=== PATIENT | female | born 1990 | race Caucasian/White ===

== ENCOUNTER 2016-10-24 17:25 | Emergency (ER) | payer SELFPAY ==
[~2016-10-24] VITALS: Ht 170.2 cm; Wt 100.0 kg
[~2016-10-24 17:25] MED LIST: CLEOCIN HC150 MG/CAP PO; DEPO MEDROL40 MG/ML IJ; DOXYCYCLINE 10100 MG PO; DROSPIRENONE; FLAGYL 375375 MG PO; FLEXERIL 1010 MG/TAB PO; LORTAB 7.5/5001 TAB PO; METRONIDAZOLE500 MG PO; NAPROSYN 2250 MG/TAB PO; NO HOME MEDICATIONS; NORCO 325 MG-51 TAB PO; NORCO 325 MG-7.1 TAB PO; PERCOCET 325 MG1 TA2 PO; PHENERGAN 25 TA25 MG PO; PRENATAL1 TA1 PO; PRIL40 PO; SPRINTEC 35 MCG1 TAB PO; ULTRAM 50MG TAB50 MG PO; ZITHROMAX 250M250 MG PO; ZOFRAN 4MG T4 MG/TAB PO; ZOFRAN8 MG PO; birth control
[2016-10-24 18:32] VITALS: BP 125/81; PULSE 91; TEMP 99.6
== END 2016-10-24 19:03 | disposition home or self-care (01) ==
LOC: COL.ER 17:25
DX: R50.9 Fever, unspecified (principal)

== ENCOUNTER 2017-09-11 05:02 | Emergency (ER) | payer SELFPAY ==
[~2017-09-11] VITALS: Ht 170.2 cm; Wt 100.0 kg
[2017-09-11 05:08] VITALS: TEMP 98
[2017-09-11 06:06] LABS: BASO # 0.1 (0.0-0.2); BASO % 0.8 % (0.0-2.0); EOS # 0.4 (0.0-0.7); EOS % 4.2 % (0-4.0); GRAN # 4.4 (1.4-6.5); GRAN % 49.4 % (42.2-75.2); HEMATOCRIT 39.5 % (37.0-47.0); HEMOGLOBIN 12.9 g/dl (12.5-16.0); LYMPH # 3.2 (1.2-3.4); LYMPH % 35.4 % (20.0-51.0); MEAN CELL VOLUME 86 fl (80.0-100.0); MEAN CORPUSCULAR HEMOGLOBIN 28 pg (27.0-31.0); MEAN CORPUSCULAR HGB CONC 33 g/dl (33.0-37.0); MEAN PLATELET VOLUME 10.3 fl (7.4-10.4); MONO # 0.9 (0.1-0.6); MONO % 9.9 % (1.7-9.3); PLATELET COUNT 252 K/mm3 (130-400); RED BLOOD COUNT 4.62 M/mm3 (4.10-5.30)
[2017-09-11 06:13] LABS: PROTHROMBIN TIME 11.5 SECONDS (9.7-12.8)
[2017-09-11 06:16] LABS: PARTIAL THROMBOPLASTIN TIME 29.5 SECONDS (26.0-37.0)
[2017-09-11 07:23] LABS: COLLECTION METHOD CLEAN CATCH
[2017-09-11] MEDS ORDERED: ORTHO-CYCLEN 351 TAB PO (07:23)
[2017-09-11] MEDS ORDERED: ZOFRAN 4MG T4 MG/TAB PO (07:31)
[2017-09-11 07:34] LABS: CHLAMYDIA/TRACH by PCR Female NOT DETECTED; NEISSERIA GON by PCR Female NOT DETECTED
[2017-09-11 07:49] LABS: MUCOUS Present /lpf; PH 5 (5-8); URINE APPEARANCE Clear; URINE BACTERIA Rare /hpf; URINE BILIRUBIN Negative (NEGATIVE); URINE BLOOD 3+ (NEGATIVE); URINE COLOR Yellow; URINE GLUCOSE Negative (NEGATIVE); URINE KETONE Negative (NEGATIVE); URINE LEUKOCYTE ESTERASE Negative (NEGATIVE); URINE PROTEIN(semi-quant) Negative (NEGATIVE); URINE RBC 20-50 /hpf; URINE UROBILINOGEN Negative (NEGATIVE)
[2017-09-11] MEDS ORDERED: MACROBID 1100 MG/CAP PO (07:59)
[2017-09-11 08:20] VITALS: BP 118/74; PULSE 76
== END 2017-09-11 08:20 | disposition home or self-care (01) ==
LOC: COL.ER 05:02
PROVIDERS: Emergency Medicine
DX: N93.9 Abnormal uterine and vaginal bleeding, unspecified (principal); E66.9 Obesity, unspecified; F17.210 Nicotine dependence, cigarettes, uncomplicated

== ENCOUNTER 2018-05-02 22:23 | Emergency (ER) | payer SELFPAY ==
[~2018-05-02] VITALS: Ht 170.2 cm; Wt 100.0 kg
[~2018-05-02 22:23] MED LIST changes: +MACROBID 1100 MG/CAP PO; +ORTHO-CYCLEN 351 TAB PO
[2018-05-02 23:11] LABS: BASO # 0.1 (0.0-0.2); BASO % 0.6 % (0.0-2.0); EOS # 0.5 (0.0-0.7); GRAN # 10.2 (1.4-6.5); GRAN % 64.5 % (42.2-75.2); HEMATOCRIT 37.8 % (37.0-47.0); HEMOGLOBIN 13.3 g/dl (12.5-16.0); LYMPH # 3.8 (1.2-3.4); LYMPH % 23.9 % (20.0-51.0); MEAN CELL VOLUME 88 fl (80.0-100.0); MEAN CORPUSCULAR HEMOGLOBIN 31 pg (27.0-31.0); MEAN CORPUSCULAR HGB CONC 35 g/dl (33.0-37.0); MEAN PLATELET VOLUME 9.7 fl (7.4-10.4); MONO # 1.2 (0.1-0.6); MONO % 7.6 % (1.7-9.3); PLATELET COUNT 277 K/mm3 (130-400); RED BLOOD COUNT 4.28 M/mm3 (4.10-5.30); REDCELL DISTRIBUTION WIDTH-CV 14.7 % (11.5-14.5)
[2018-05-02 23:22] LABS: ALANINE AMINOTRANSFERASE 21 U/L (9-52); ALBUMIN 3.8 gm/dL (3.5-5.0); ALKALINE PHOSPHATASE 86 U/L (50-136); ANION GAP 11 mmol/L (7-16); AST,SGOT 13 U/L (15-37); BILIRUBIN,TOTAL 0.2 mg/dL (0.0-1.0); BLOOD UREA NITROGEN 6 mg/dL (7-17); CALCIUM 9.3 mg/dL (8.4-10.2); CARBON DIOXIDE 20 mmol/L (22-30); CHLORIDE 107 mmol/L (98-107); CREATININE, serum 0.65 mg/dL (0.52-1.25); GLUCOSE 189 mg/dL (74-106); LIPASE 110 U/L (23-300); POTASSIUM 3.8 mmol/L (3.4-5.0); SODIUM 138 mmol/L (137-145)
[2018-05-02 23:41] LABS: HCG,QUANTITATIVE < 2 mIU/mL (0-5)
[2018-05-02 23:43] LABS: COLLECTION METHOD CLEAN CATCH
[2018-05-03 00:08] LABS: AMORPHOUS CRYSTAL Present /uL; MUCOUS Present /lpf; PH 5 (5-8); URINE APPEARANCE Hazy; URINE BACTERIA Moderate /hpf; URINE BILIRUBIN Negative (NEGATIVE); URINE BLOOD 3+ (NEGATIVE); URINE COLOR Yellow; URINE GLUCOSE Negative (NEGATIVE); URINE KETONE Negative (NEGATIVE); URINE LEUKOCYTE ESTERASE 1+ (NEGATIVE); URINE NITRATE Negative (NEGATIVE); URINE PROTEIN(semi-quant) 1+ (NEGATIVE); URINE RBC >50 /hpf; URINE UROBILINOGEN Negative (NEGATIVE)
[2018-05-03] MEDS ORDERED: ZOFRAN ODT4 MG PO (00:16)
[2018-05-03] MEDS ORDERED: OMNICEF 300MG300 MG PO (00:16)
[2018-05-03 00:50] VITALS: BP 148/85
[2018-05-03 01:05] VITALS: PULSE 78; TEMP 97.8
[2018-05-04] MEDS ORDERED: NORCO 325 MG-51 TAB PO (01:17)
== END 2018-05-03 01:05 | disposition home or self-care (01) ==
LOC: COL.ER 22:23
PROVIDERS: Physician Assistant
DX: N12 Tubulo-interstitial nephritis, not specified as acute or chronic (principal); F17.210 Nicotine dependence, cigarettes, uncomplicated
CPT/HCPCS: J0696; J1885; J3010

== ENCOUNTER 2018-05-03 22:38 | Emergency (ER) | payer SELFPAY ==
[~2018-05-03] VITALS: Ht 170.2 cm; Wt 100.0 kg
[~2018-05-03 22:38] MED LIST changes: +OMNICEF 300MG300 MG PO; +ZOFRAN ODT4 MG PO
[2018-05-03 22:45] VITALS: TEMP 98.3
[2018-05-03 23:12] LABS: BASO # 0.1 (0.0-0.2); BASO % 0.8 % (0.0-2.0); EOS # 0.4 (0.0-0.7); EOS % 2.9 % (0-4.0); GRAN # 8.1 (1.4-6.5); GRAN % 55.2 % (42.2-75.2); HEMATOCRIT 40.9 % (37.0-47.0); HEMOGLOBIN 13.7 g/dl (12.5-16.0); LYMPH # 4.7 (1.2-3.4); MEAN CELL VOLUME 87 fl (80.0-100.0); MEAN CORPUSCULAR HEMOGLOBIN 29 pg (27.0-31.0); MEAN CORPUSCULAR HGB CONC 34 g/dl (33.0-37.0); MONO # 1.3 (0.1-0.6); MONO % 8.8 % (1.7-9.3); PLATELET COUNT 344 K/mm3 (130-400); RED BLOOD COUNT 4.72 M/mm3 (4.10-5.30); REDCELL DISTRIBUTION WIDTH-CV 14.5 % (11.5-14.5)
[2018-05-03 23:19] LABS: COLLECTION METHOD CLEAN CATCH; PH 7 (5-8); SQUAMOUS EPITHELIAL 0-2 /hpf; URINE APPEARANCE Clear; URINE BACTERIA Rare /hpf; URINE BILIRUBIN Negative (NEGATIVE); URINE BLOOD 3+ (NEGATIVE); URINE COLOR Amber; URINE GLUCOSE Negative (NEGATIVE); URINE KETONE Negative (NEGATIVE); URINE LEUKOCYTE ESTERASE 1+ (NEGATIVE); URINE NITRATE Negative (NEGATIVE); URINE PROTEIN(semi-quant) 1+ (NEGATIVE); URINE RBC >50 /hpf; URINE UROBILINOGEN Negative (NEGATIVE)
[2018-05-03 23:22] LABS: ALBUMIN 4.1 gm/dL (3.5-5.0); BILIRUBIN,TOTAL 0.2 mg/dL (0.0-1.0); C-REACTIVE PROTEIN 1.5 mg/dL (0.0-0.9); CALCIUM 9.9 mg/dL (8.4-10.2); CREATININE, serum 0.8 mg/dL (0.52-1.25); POTASSIUM 4.1 mmol/L (3.4-5.0); TOTAL PROTEIN 7.3 gm/dL (6.4-8.2)
[2018-05-04 01:12] VITALS: BP 132/70; PULSE 85
[2018-05-04] MEDS ORDERED: NORCO 325 MG-51 TAB PO (01:17)
== END 2018-05-04 01:31 | disposition home or self-care (01) ==
LOC: COL.ER 22:38
PROVIDERS: Emergency Medicine; Nurse Practitioner
DX: R10.31 Right lower quadrant pain (principal); Z87.42 Personal history of other diseases of the female genital tract
CPT/HCPCS: J1170; J2550; J7030; Q9967

== ENCOUNTER 2018-08-19 19:03 | Emergency (ER) | payer BC ==
[~2018-08-19] VITALS: Ht 261.6 cm; Wt 100.0 kg
[2018-08-19 19:11] VITALS: TEMP 99
[2018-08-19] MEDS ORDERED: FLEXERIL5 MG PO (21:14)
[2018-08-19] MEDS ORDERED: MEDROL 4MG DOSPA4 MG PO (21:14)
[2018-08-19 21:20] VITALS: BP 138/67; PULSE 87
== END 2018-08-19 21:20 | disposition home or self-care (01) ==
LOC: COL.ER 19:03
DX: S93.601A Unspecified sprain of right foot, initial encounter (principal); G57.91 Unspecified mononeuropathy of right lower limb; F17.210 Nicotine dependence, cigarettes, uncomplicated; X50.0XXA Overexertion from strenuous movement or load, initial encounter; Y92.009 Unspecified place in unspecified non-institutional (private) residence as the place of occurrence of the external cause

== ENCOUNTER 2018-11-29 19:46 | Emergency (ER) | payer SELFPAY ==
[~2018-11-29] VITALS: Ht 170.2 cm; Wt 100.0 kg
[~2018-11-29 19:46] MED LIST changes: +FLEXERIL5 MG PO; +MEDROL 4MG DOSPA4 MG PO
[2018-11-29 19:53] VITALS: TEMP 98.5
[2018-11-29 20:13] LABS: COLLECTION METHOD CLEAN CATCH
[2018-11-29 20:22] LABS: PH 7 (5-8); SQUAMOUS EPITHELIAL 0-2 /hpf; URINE APPEARANCE Clear; URINE BACTERIA None Seen /hpf; URINE BILIRUBIN Negative (NEGATIVE); URINE BLOOD 1+ (NEGATIVE); URINE COLOR Yellow; URINE GLUCOSE Negative (NEGATIVE); URINE KETONE Negative (NEGATIVE); URINE LEUKOCYTE ESTERASE Negative (NEGATIVE); URINE NITRATE Negative (NEGATIVE); URINE PROTEIN(semi-quant) Negative (NEGATIVE); URINE UROBILINOGEN Negative (NEGATIVE)
[2018-11-29 20:42] LABS: BASO # 0.1 (0.0-0.2); BASO % 0.7 % (0.0-2.0); EOS # 0.4 (0.0-0.7); EOS % 3.3 % (0-4.0); GRAN # 6.8 (1.4-6.5); GRAN % 55.2 % (42.2-75.2); HEMATOCRIT 40.7 % (37.0-47.0); HEMOGLOBIN 13.4 g/dl (12.5-16.0); LYMPH # 3.9 (1.2-3.4); LYMPH % 31.7 % (20.0-51.0); MEAN CELL VOLUME 90 fl (80.0-100.0); MEAN CORPUSCULAR HEMOGLOBIN 30 pg (27.0-31.0); MEAN CORPUSCULAR HGB CONC 33 g/dl (33.0-37.0); MEAN PLATELET VOLUME 9.9 fl (7.4-10.4); MONO # 1.1 (0.1-0.6); MONO % 8.7 % (1.7-9.3); PLATELET COUNT 257 K/mm3 (130-400); RED BLOOD COUNT 4.53 M/mm3 (4.10-5.30); REDCELL DISTRIBUTION WIDTH-CV 12.8 % (11.5-14.5)
[2018-11-29 20:57] LABS: ALANINE AMINOTRANSFERASE 18 U/L (9-52); ALBUMIN 3.8 gm/dL (3.5-5.0); ALKALINE PHOSPHATASE 97 U/L (50-136); ANION GAP 7 mmol/L (7-16); AST,SGOT 23 U/L (15-37); BILIRUBIN,TOTAL 0.2 mg/dL (0.0-1.0); BLOOD UREA NITROGEN 12 mg/dL (7-17); CALCIUM 9.1 mg/dL (8.4-10.2); CARBON DIOXIDE 27 mmol/L (22-30); CHLORIDE 103 mmol/L (98-107); CREATININE, serum 0.74 mg/dL (0.52-1.25); GLUCOSE 101 mg/dL (74-106); POTASSIUM 3.9 mmol/L (3.4-5.0); SODIUM 136 mmol/L (137-145); TOTAL PROTEIN 6.8 gm/dL (6.4-8.2)
[2018-11-29 20:58] LABS: C-REACTIVE PROTEIN < 0.5 mg/dL (0.0-0.9)
[2018-11-29] MEDS ORDERED: FLAGYL500 MG PO (22:31)
[2018-11-29 22:38] VITALS: BP 147/97; PULSE 88
== END 2018-11-29 22:39 | disposition home or self-care (01) ==
LOC: COL.ER 19:46
PROVIDERS: Emergency Medicine
DX: N76.0 Acute vaginitis (principal); B37.3 Candidiasis of vulva and vagina; E66.9 Obesity, unspecified; F17.210 Nicotine dependence, cigarettes, uncomplicated; Z68.34 Body mass index [BMI] 34.0-34.9, adult
CPT/HCPCS: J1885

== ENCOUNTER 2019-06-29 13:31 | Emergency (ER) | payer SELFPAY ==
[~2019-06-29] VITALS: Ht 170.2 cm; Wt 100.0 kg
[~2019-06-29 13:31] MED LIST changes: +FLAGYL500 MG PO
[2019-06-29 13:48] VITALS: TEMP 99
[2019-06-29 14:03] LABS: COLLECTION METHOD CLEAN CATCH
[2019-06-29 14:10] LABS: PH 6 (5-8); SQUAMOUS EPITHELIAL 0-2 /hpf; URINE APPEARANCE Clear; URINE BACTERIA None Seen /hpf; URINE BILIRUBIN Negative (NEGATIVE); URINE BLOOD 1+ (NEGATIVE); URINE COLOR Yellow; URINE GLUCOSE Negative (NEGATIVE); URINE KETONE Negative (NEGATIVE); URINE LEUKOCYTE ESTERASE Negative (NEGATIVE); URINE NITRATE Negative (NEGATIVE); URINE PROTEIN(semi-quant) Negative (NEGATIVE); URINE UROBILINOGEN Negative (NEGATIVE)
[2019-06-29 17:15] LABS: TRICYCLIC ANTIDEPRESS URINE NEGATIVE
[2019-06-29 17:37] LABS: ALANINE AMINOTRANSFERASE 20 U/L (9-52); ALBUMIN 4.8 gm/dL (3.5-5.0); ALKALINE PHOSPHATASE 98 U/L (50-136); ANION GAP 12 mmol/L (7-16); AST,SGOT 23 U/L (15-37); BILIRUBIN,TOTAL 0.3 mg/dL (0.0-1.0); BLOOD UREA NITROGEN 7 mg/dL (7-17); CALCIUM 9.7 mg/dL (8.4-10.2); CARBON DIOXIDE 23 mmol/L (22-30); CHLORIDE 107 mmol/L (98-107); CREATININE, serum 0.83 (0.52-1.25); GLUCOSE 91 mg/dL (74-106); POTASSIUM 4.1 mmol/L (3.4-5.0); SODIUM 142 mmol/L (137-145); TOTAL PROTEIN 8.3 gm/dL (6.4-8.2)
[2019-06-29 17:52] LABS: TROPONIN-I < 0.012 ng/mL (0.000-0.035)
[2019-06-29 17:59] LABS: BASO # 0.1 (0.0-0.2); BASO % 0.6 % (0.0-2.0); EOS # 0.3 (0.0-0.7); EOS % 2.4 % (0-4.0); GRAN # 6.9 (1.4-6.5); GRAN % 58.6 % (42.2-75.2); HEMOGLOBIN 15.3 g/dl (12.5-16.0); LYMPH # 3.5 (1.2-3.4); LYMPH % 30.3 % (20.0-51.0); MEAN CELL VOLUME 87 fl (80.0-100.0); MEAN CORPUSCULAR HEMOGLOBIN 29 pg (27.0-31.0); MEAN CORPUSCULAR HGB CONC 33 g/dl (33.0-37.0); MEAN PLATELET VOLUME 10.3 fl (7.4-10.4); MONO # 0.9 (0.1-0.6); MONO % 7.8 % (1.7-9.3); PLATELET COUNT 298 K/mm3 (130-400); RED BLOOD COUNT 5.32 M/mm3 (4.10-5.30); REDCELL DISTRIBUTION WIDTH-CV 13.1 % (11.5-14.5)
[2019-06-29] MEDS ORDERED: AMOXICILLIN 8751 TAB PO (18:30)
[2019-06-29 18:44] VITALS: BP 150/80; PULSE 72
== END 2019-06-29 18:44 | disposition home or self-care (01) ==
LOC: COL.ER 13:31
PROVIDERS: Emergency Medicine
DX: J01.90 Acute sinusitis, unspecified (principal); R07.89 Other chest pain
CPT/HCPCS: J1170